=== PATIENT | female | born 1955 | race Caucasian/White ===

== ENCOUNTER 2024-05-08 04:11 | Emergency (ER) | payer MEDICARE, OTHER, SELFPAY ==
[2024-05-08 04:15] VITALS: BP 119/76
[2024-05-08 04:23] VITALS: BMI 33.1
--- NOTE | 2024-05-08 05:18 | ED.GENMED ---
History of Present Illness
General
Chief Complaint: Head Injury
Source: patient and family
Exam Limitations: none
Time Seen by Provider: 05/08/24 04:58
Nursing documentation reviewed up to this point in time: agreed with
History of Present Illness
History of Present Illness:
Pleasant 68-year-old female that presents with a fall. She is on Xarelto for atrial fibrillation. Tonight she stumbled and struck her head. She is not sure if she had loss of consciousness but she does not remember the fall. She does report left
knee pain but that has been subacute. She states that she injured that knee a while ago. She just wants an x-ray to have it checked out. Denies blurry vision. Denies nausea or vomiting. Reports no dizziness vertigo. is a retired
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 I did allow this. He felt that the CAT scan was normal with the exception of her chronic ventriculomegaly.
Past History
Past History
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
ED Past Surgical History: Orthopedic (Right ankle fracture repair August 2020); Negative Cardiac
Social History
Tobacco: Non-smoker
Personal:
Living: with family
Family History
Family History: Other (Noncontributory)
Review of Systems
Review of Systems
Allergies reviewed?: Yes
Other source history: family
All Other Systems: ROS reviewed and negative except as documented in HPI and ROS
Constitutional: Reports no symptoms
EENT: Reports no symptoms
Respiratory: Reports no symptoms
Cardiac: Reports no symptoms
ABD/GI: Denies nausea or vomiting
: Reports no symptoms
Musculoskeletal: Reports no symptoms
Skin: Reports no symptoms
Neurological: Reports headache; Denies dizzy, weakness or numbness
Endocrine: Reports no symptoms
Hematologic/Lymphatic: Reports no symptoms
Psychiatric: Reports anxiety
Phy Exam
General Physical Exam
General Presentation: well appearing and no apparent distress
General Skin: warm and dry
General Habitus: normal
General Mental: alert
General Hydration: appears well hydrated
ENT Exam
ENT Exam: EOMI, pharynx normal, neck supple and normocephalic
Eye Exam
Eye Exam: PERRL, cornea clear and conjunctiva normal
Cardiovascular Exam
Cardiovascular Exam: regular rate/rhythm, no edema, no murmur and normal peripheral pulses
Pulmonary Exam
Pulmonary Exam: lungs clear, no respiratory distress, no rales, no crackles, no rhonchi, no stridor, no wheezing and no cough
Gastrointestinal Exam
Gastrointestinal Exam: normal bowel sounds, non tender, soft, no organomegaly, no pulsatile mass and non distended
Neurological Exam
Neurological Exam: alert, oriented x3, no motor deficits and speech normal
Musculoskeletal Exam
Musculoskeletal Exam: full ROM and no edema
Skin Exam
Skin Exam: normal color, warm/dry, no rash and no petechia
Psychiatric Exam
Psychiatric Exam: normal mood/affect
Course
Orders/Labs/Results
Orders:
Orders
05/08/24 04:[address] [CT Head W/o Iv Contrast] Urgent
Comment: with head strike
Reason For Exam: fall on xarelto
05/08/24 04:24
Knee, Left 4 or More Views [CR Knee - Left 4 Or More View*] Urgent
Comment:
Reason For Exam: fall
Vital Signs
Initial and Last Documented VS:
Initial Vital Signs
Temp Pulse Resp BP Pulse Ox
98.5 F 81 20 119/76 98
05/08/24 04:15 05/08/24 04:15 05/08/24 04:15 05/08/24 04:15 05/08/24 04:15
Last Documented Vital Signs
Temp Pulse Resp BP Pulse Ox
98.5 F 81 20 119/76 98
05/08/24 04:15 05/08/24 04:15 05/08/24 04:15 05/08/24 04:15 05/08/24 04:15
*Radiology
Radiology exam reviewed: radiology read reviewed
*Pulse Oximetry
Patient hypoxic: no
*Critical Care Note
Total Time (30-74mins, 75-104mins- exclusive of procedures): Not Applicable
Update Note
Update Note:
CT head without IV contrast
IMPRESSION:
No hemorrhage or other evidence of trauma.
Ventriculomegaly out of proportion to the degree of parenchymal atrophy suggesting underlying normal pressure hydrocephalus. No prior imaging for comparison.
Sequelae of chronic microvascular disease. Global parenchymal volume loss.
05/08/2024 0539 AM: Discussed this with who states that the ventriculomegaly is chronic
ED Attending Note
-
Portions of this chart may have been created with voice recognition software.� Occasional wrong word or��sound alike� substitutions may have occurred due to the inherent limitations of voice recognition software.
Discharge Plan
Departure
Patient Disposition: Home (Routine Discharge)
Date of Disposition: 05/08/24
Time of Disposition: 05:41
Patient with high blood pressure during this ER visit?: No
Condition: Good
Discharge Problem:
Head injury, Subacute knee pain
Instructions: Head Injury in Adults (DC), Minor Head Injury (DC), Knee Pain ED
Referrals:
[facility] [Outside]
[facility] [Outside]
Activity Restrictions/Additional Instructions:
It was a pleasure meeting you and taking part in your care. We hope for your continued healing and wellness.
Please read discharge instructions in their entirety. However, they are for general education and may not describe your exact diagnosis at discharge. Information on your ER visit and medical conditions were discussed with you along with appropriate
follow up information...
If indicated, please take your medications as instructed and indicated on discharge paperwork.
Please schedule a follow up appointment as directed. Call to schedule an appointment
Please return to the emergency department with ANY change in, persisting, or worsening of symptoms. If any of your symptoms do not improve, or persist, or become more severe within 6-12 hours, please return to the emergency department for further
care.
Please return to the emergency department if you develop a headache, neck pain/stiffness, fever greater than 100.4F, chest pain, shortness of breath, persistent nausea, vomiting, slurred speech, difficulty walking, numbness/tingling, weakness, signs
of infection or any other symptoms that are worrisome to you.
If you have any questions or concerns please do not hesitate to call the Hospital at
Interventions
Interventions:
*Risk Screen - Suicide Last Done: 05/08/24 04:23
*General Assessment Last Done: 05/08/24 04:23
*Neglect/Abuse Screening Last Done: 05/08/24 04:23
*ED COVID-19 Vaccine History Last Done: 05/08/24 04:23
ED- Neurological Assessment Last Done: 05/08/24 04:23
ED-Skin Assessment Last Done: 05/08/24 04:23
Discharge Date and Time
Print Language: BERMUDIAN
== END 2024-05-08 06:02 | disposition home or self-care (01) ==
LOC: EMR 04:11
PROVIDERS: EMERGENCY PHYSICIAN Student in an Organized Health Care Education/Training Program; FAMILY PHYSICIAN Family Medicine
DX: S09.90XA Unspecified injury of head, initial encounter (principal); M25.562 Pain in left knee; R51.9 Headache, unspecified; W19.XXXA Unspecified fall, initial encounter; I48.91 Unspecified atrial fibrillation; Z63.4 Disappearance and death of family member; G93.89 Other specified disorders of brain; G89.29 Other chronic pain; R68.84 Jaw pain; I10 Essential (primary) hypertension; G62.9 Polyneuropathy, unspecified; Z79.01 Long term (current) use of anticoagulants
CPT/HCPCS: 99284; 70450; 73564

== ENCOUNTER → 2024-06-17 17:54 | Outpatient (REF) | payer MEDICARE, OTHER, SELFPAY | LOC: RAD 17:54 | PROVIDERS: ATTENDING PHYSICIAN Nurse Practitioner Adult Health | DX: M25.571 Pain in right ankle and joints of right foot (principal); Z98.1 Arthrodesis status | CPT/HCPCS: 73610 ==

== ENCOUNTER → 2024-08-24 14:37 | Outpatient (REF) | payer MEDICARE, OTHER, SELFPAY | LOC: HWRAD 14:37 | PROVIDERS: ATTENDING PHYSICIAN Obstetrics & Gynecology; FAMILY PHYSICIAN Family Medicine | DX: Z13.820 Encounter for screening for osteoporosis (principal); Z78.0 Asymptomatic menopausal state | CPT/HCPCS: 77080 ==

== ENCOUNTER 2025-01-24 05:31 | Emergency (ER) | payer MEDICARE, OTHER, SELFPAY ==
[2025-01-24] VITALS (20 sets, daily range): BP systolic 81–156; BP diastolic 46–104; BMI 30.5
[2025-01-24 05:55] LABS: Glucose - Point of Care 110 mg/dl (70-99)
[2025-01-24 06:33] LABS: % Basophils 0.4 % (0-2); % Eosinophils 1.5 % (0-6); % Immature Granulocytes 0.2 % (0-0.5); % Lymphocytes 29.1 % (20.5-51.1); % Monocytes 8.5 % (1.7-9.3); % Neutrophils 60.3 % (42.2-75.2); Absolute Eosinophils 0.1 10^3/uL (0-0.7); Absolute Lymphocytes 1.3 10^3/uL (1.2-3.4); Absolute Monocytes 0.4 10^3/uL (0.1-0.6); Absolute Neutrophils 2.8 10^3/uL (1.4-6.5); Hematocrit 40.8 % (37.0-47.0); Hemoglobin 13.6 g/dL (12.0-16.0); Mean Corp Hgb Conc. 33.3 g/dL (33.0-37.0); Mean Corpuscular Hgb 30.5 pg (27.0-31.0); Mean Corpuscular Volume 91.5 fL (81.0-99.0); Mean Platelet Volume 12.7 fL (7.4-10.4); Nucleated Red Blood Cells % 0 %; Platelet Count 106 10^3/uL (130-400); Red Blood Cell Count 4.46 10^6/uL (4.20-5.40); Red Cell Dist. Width 13.9 % (11.5-14.5); White Blood Cell Count 4.6 10^3/uL (4.8-10.8)
[2025-01-24] MEDS: NSS 1000 IV ×2 (06:33→10:09)
[2025-01-24 06:38] LABS: INR 1.73; PT 20.5 Sec (11.4-14.6)
--- NOTE | 2025-01-24 06:38 | ED.GENMED ---
Addendum entered and electronically signed by Eusebio Hector DO 01/24/25 13:02:
Update patient awake alert and oriented sitting upright, states she would like to go home she just called her to come get her is in [place] and appointment
Original Note:
History of Present Illness
General
Chief Complaint: Change in Mental Status
Source: patient, records, spouse and previous hospital records
Exam Limitations: altered mental status
Time Seen by Provider: 01/24/25 06:23
History of Present Illness
History of Present Illness:
69-year-old female with PAF on Xarelto chronic pain syndrome on methadone medical marijuana Colace drinks alcohol companied by her spouse she was grabbing at her head today possibly fell, here she is moaning in pain arousable pupils are 3 mm OU,
blood pressure in the high 90s, no fevers no vomiting no chance of overdose gives her her meds,
Past History
Past History
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
ED Past Surgical History: Orthopedic (Right ankle fracture repair August 2020); Negative Cardiac
Social History
Tobacco: Non-smoker
Alcohol: Occasional
Drug: Marijuana
Personal:
Living: with family
Employment: Retired
Family History
Family History: Other (Noncontributory)
Review of Systems
Review of Systems
Unable to obtain full review of systems at this time due to: due to acuity
Other source history: family
All Other Systems: Not applicable
Phy Exam
Physical Exam
Physical Exam:
Physical Exam
General: 69-year-old female moaning eyes closed opens to voice
Neck: No tongue
Heart: s1/s2 regular rate and rhythm, no murmur. equal radial pulses.
Lungs: no acute respiratory distress. clear bilaterally
Abdomen: Nontender
Neuro: alert and oriented. no focal neurological deficits
Skin: no rash
Psychiatric: well kept. interactive and cooperative
Extremities: no edema.
Course
Orders/Labs/Results
Orders:
Orders
01/24/25 05:57
ECG [Electrocardiogram (*1)] Urgent
Reason for Study: Other
Other Reason for Exam: change of mental status
Cardiology Consult: Unknown
EKG- Treatment ONCE
01/24/25 06:02
Acetaminophen Urgent
Comment: ADD ON
Alcohol Urgent
Complete Blood Count/With Diff Urgent
Comprehensive Metabolic Panel Urgent
Fentanyl, Urine Urgent
Lipase Urgent
Comment: ADD ON
PTT Urgent
Prothrombin Time Urgent
Salicylate Urgent
Comment: ADD ON
Urinalysis Reflex To Culture Urgent
Date Specimen was Collected: 01/24/25
Time Specimen was Collected: 05:56
Urine Drug Abuse Screen Urgent
Date Specimen was Collected: 01/24/25
Time Specimen was Collected: 05:56
Urine Microscopic Reflex Cult Urgent
01/24/25 06:25
CT Cervical Spine W/o Iv Contr Urgent
Comment:
Reason For Exam: xarelto
CT Head W/o Iv Contrast Urgent
Comment:
Reason For Exam: fall xarelto
Cardiac Monitoring- Treatment ONCE
0.9% Sodium Chloride 1000 ml [Nss] 1,000 ml IV BOLUS
CR Chest Portable - 1 View Urgent
Comment:
Reason For Exam: alterned ms
Reason Study Needs to be Portable: Unable to Transport
01/24/25 06:43
Add On- LAB Urgent
Tests Added?: Salicylate, acetaminophen
01/24/25 09:40
0.9% Sodium Chloride 1000 ml [Nss] 1,000 ml IV BOLUS
Pantoprazole [Protonix IV] 40 mg IV NOW STA
01/24/25 09:41
Add On- LAB Urgent
Tests Added?: Lipase
01/24/25 10:07
Troponin I Urgent
01/24/25 13:00
Methadone [Dolophine] 10 mg PO QID
01/24/25 16:00
Gabapentin [Neurontin] 600 mg PO TID
Abnormal Lab Results
01/24/25 01/24/25
05:54 06:02
WBC 4.6 L 10^3/uL
(4.8-10.8)
Plt Count 106 L 10^3/uL
(130-400)
MPV 12.7 H fL
(7.4-10.4)
PT 20.5 H Sec
(11.4-14.6)
APTT 41.1 H Sec
(23.4-35.0)
Sodium 134 L mmol/L
(135-145)
Chloride 96 L mmol/L
(98-107)
Carbon Dioxide 31 H mmol/L
(22-30)
BUN 25 H mg/dl
(7-17)
Glucose 139 H mg/dl
(70-99)
AST 37 H U/L
(14-36)
Urine Albumin (Reflex) 1+ A
(Neg - Trace)
Salicylates < 1.0 L mg/dl
(2.0-20.0)
Urine Methadone Screen Positive H
(Negative)
Acetaminophen < 10 L ug/ml
(10-30)
Ur Tricyclics Screen Positive H
(Negative)
U Marijuana (THC) Screen Positive H
(Negative)
POC Glucose 110 H mg/dl
(70-99)
01/24/25 06:02
01/24/25 06:02
Vital Signs
Initial and Last Documented VS:
Initial Vital Signs
Pulse Resp Pulse Ox
60 24 96
01/24/25 05:34 01/24/25 05:34 01/24/25 05:34
Last Documented Vital Signs
Temp Pulse Resp BP Pulse Ox
97.7 F 46 13 105/58 100
01/24/25 06:30 01/24/25 12:34 01/24/25 12:34 01/24/25 12:34 01/24/25 12:34
MDM/Problems Addressed
Differential Diagnosis Includes:
Intoxication, head injury, intracerebral hemorrhage, medication withdrawal,
MDM/Problems Addressed:
Agitation possibly fall
Chronic conditions affecting care:
Chronic pain
Acute Exacerbation and/or Progression of Chronic Illness:
Chronic pain
*Radiology
Radiology exam reviewed: preliminary read by ED provider
*Pulse Oximetry
Patient hypoxic: no
*EKG
Interpreted by ED Provider?: Yes
Interpretation: normal
Comparison EKG: no comparison EKG present
Heart Rate: 78
Rate: normal
Rhythm: sinus
Ischemia: no ischemia
*Production Expediter Interpretation
Rate: normal
Interpretation: normal
Heart Rate: 78
Rhythm: sinus
*Critical Care Note
Total Time (30-74mins, 75-104mins- exclusive of procedures): Not Applicable
Update Note
Update Note:
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
add troponin lipase Protonix
12:30 PM patient lethargic, though easily arousable, discussed with spouse that he has to go to an appointment will be admitted does not look like she can go home this state
ED Attending Note
-
Portions of this chart may have been created with voice recognition software.� Occasional wrong word or��sound alike� substitutions may have occurred due to the inherent limitations of voice recognition software.
Discharge Plan
Departure
Patient Disposition: Admit
Date of Disposition: 01/24/25
Time of Disposition: 12:37
Admit to: Telemetry
Presentation/result/management discussed w/ accepting MD/DO: Hospitalist
Patient with high blood pressure during this ER visit?: No
Condition: Fair
Discharge Problem:
Altered sensorium
Instructions: Altered Mental Status (DC)
Prescriptions:
No Action
gabapentin 600 mg Tablet
600 mg PO TID
Colace 50 mg Capsule
50 mg PO TID
oxycodone-acetaminophen [Percocet] 5-325 mg Tablet
1 tab PO HS
tamsulosin [Flomax] 0.4 mg Capsule
0.4 mg PO BID
nortriptyline 50 mg Capsule
50 mg PO HS
nebivolol [Bystolic] 10 mg Tablet
10 mg PO HS
rivaroxaban [Xarelto] 2.5 mg Tablet
5 mg PO BID
Referrals:
Yasmine Gama MD [Family Provider] -
Interventions
Interventions:
*Risk Screen - Suicide Last Done: 01/24/25 06:08
*General Assessment Last Done: 01/24/25 06:08
*Neglect/Abuse Screening Last Done: 01/24/25 06:08
*ED- Fall Risk Assessment Last Done: 01/24/25 06:41
*ED COVID-19 Vaccine History Last Done: 01/24/25 06:07
ED- Cardiac Assessment Last Done: 01/24/25 06:08
ED- Neurological Assessment Last Done: 01/24/25 06:08
ED-Psychological Assessment Last Done: 01/24/25 06:08
ED- Pulmonary Assessment Last Done: 01/24/25 06:08
ED Swallowing Screen Last Done: 01/24/25 06:41
Discharge Date and Time
Print Language: SLOVENIAN
[2025-01-24 06:39] LABS: APTT 41.1 Sec (23.4-35.0)
[2025-01-24 06:50] LABS: ALT (SGPT) 28 U/L (0-35); AST (SGOT) 37 U/L (14-36); Albumin 4.4 g/dl (3.5-5.0); Alkaline Phosphatase 101 U/L (38-126); Blood Urea Nitrogen 25 mg/dl (7-17); Calcium 10.2 mg/dl (8.4-10.2); Carbon Dioxide 31 mmol/L (22-30); Chloride 96 mmol/L (98-107); Estimated Creatinine Clearance 60 ml/min; Glucose 139 mg/dl (70-99); Potassium 4.2 mmol/L (3.5-5.1); Sodium 134 mmol/L (135-145); Total Bilirubin 0.3 mg/dl (0.2-1.3); Total Protein 7.3 g/dl (6.3-8.2); eGFR > 60.00
[2025-01-24 06:51] LABS: Alcohol None Detected
[2025-01-24 07:02] LABS: Amphetamines Negative (Negative); Barbiturates Negative (Negative); Benzodiazepines Negative (Negative); Buprenorphine Negative (Negative); Cocaine Negative (Negative); Marijuana Positive (Negative); Methadone Positive (Negative); Methamphetamines Negative (Negative); Opiates Negative (Negative); Phencyclidine Negative (Negative); Tricyclic Antidepressants Positive (Negative)
[2025-01-24 07:25] LABS: Acetaminophen < 10 ug/ml (10-30); Salicylate < 1.0 mg/dl (2.0-20.0)
[2025-01-24 07:34] LABS: Urine Albumin 1+ (Neg - Trace); Urine Bilirubin Negative (Negative); Urine Character Clear (Clear); Urine Color Yellow; Urine Glucose Negative (Negative); Urine Ketone Negative (Negative); Urine Leukocyte Negative (Negative); Urine Nitrite Negative (Negative); Urine Occult Blood Negative (Negative); Urine Urobilinogen Negative (Neg - 1+)
[2025-01-24 07:39] LABS: Fentanyl, Urine Negative (Negative)
[2025-01-24 08:27] LABS: Urine Hyaline Cast 0-2 /LPF (0-2); Urine Squamous Cell 0-2 /LPF (Few)
[2025-01-24 08:28] LABS: Urine Red Blood Cell 0-2 /HPF (0-2); Urine White Cell 0-2 /HPF (0-5)
[2025-01-24] MEDS: PROTONIX IV 40 MG IV (10:09)
[2025-01-24 10:22] LABS: Lipase 49 U/L (23-300)
[2025-01-24 10:35] LABS: Troponin I < 0.012 ng/ml
--- NOTE | 2025-01-24 12:56 | EDRN ---
hospitalist currently at the pts bedside, the pt is stating that she doesn't want to stay in the hospital and has called her to pick her up
--- NOTE | 2025-01-24 13:02 | ED.GENMED ---
History of Present Illness
General
Chief Complaint: Change in Mental Status
Time Seen by Provider: 01/24/25 06:23
Past History
Past History
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
ED Past Surgical History: Orthopedic (Right ankle fracture repair August 2020); Negative Cardiac
Social History
Tobacco: Non-smoker
Alcohol: Occasional
Drug: Marijuana
Personal:
Living: with family
Employment: Retired
Family History
Family History: Other (Noncontributory)
Course
Orders/Labs/Results
Orders:
Orders
01/24/25 05:57
ECG [Electrocardiogram (*1)] Urgent
Reason for Study: Other
Other Reason for Exam: change of mental status
Cardiology Consult: Unknown
EKG- Treatment ONCE
01/24/25 06:02
Acetaminophen Urgent
Comment: ADD ON
Alcohol Urgent
Complete Blood Count/With Diff Urgent
Comprehensive Metabolic Panel Urgent
Fentanyl, Urine Urgent
Lipase Urgent
Comment: ADD ON
PTT Urgent
Prothrombin Time Urgent
Salicylate Urgent
Comment: ADD ON
Urinalysis Reflex To Culture Urgent
Date Specimen was Collected: 01/24/25
Time Specimen was Collected: 05:56
Urine Drug Abuse Screen Urgent
Date Specimen was Collected: 01/24/25
Time Specimen was Collected: 05:56
Urine Microscopic Reflex Cult Urgent
01/24/25 06:[address]
CT Cervical Spine W/o Iv Contr Urgent
Comment:
Reason For Exam: xarelto
CT Head W/o Iv Contrast Urgent
Comment:
Reason For Exam: fall xarelto
Cardiac Monitoring- Treatment ONCE
0.9% Sodium Chloride 1000 ml [Nss] 1,000 ml IV BOLUS
CR Chest Portable - 1 View Urgent
Comment:
Reason For Exam: alterned ms
Reason Study Needs to be Portable: Unable to Transport
01/24/25 06:43
Add On- LAB Urgent
Tests Added?: Salicylate, acetaminophen
01/24/25 09:40
0.9% Sodium Chloride 1000 ml [Nss] 1,000 ml IV BOLUS
Pantoprazole [Protonix IV] 40 mg IV NOW STA
01/24/25 09:41
Add On- LAB Urgent
Tests Added?: Lipase
01/24/25 10:07
Troponin I Urgent
01/24/25 13:00
Methadone [Dolophine] 10 mg PO QID
01/24/25 16:00
Gabapentin [Neurontin] 600 mg PO TID
Abnormal Lab Results
01/24/25 01/24/25
05:54 06:02
WBC 4.6 L 10^3/uL
(4.8-10.8)
Plt Count 106 L 10^3/uL
(130-400)
MPV 12.7 H fL
(7.4-10.4)
PT 20.5 H Sec
(11.4-14.6)
APTT 41.1 H Sec
(23.4-35.0)
Sodium 134 L mmol/L
(135-145)
Chloride 96 L mmol/L
(98-107)
Carbon Dioxide 31 H mmol/L
(22-30)
BUN 25 H mg/dl
(7-17)
Glucose 139 H mg/dl
(70-99)
AST 37 H U/L
(14-36)
Urine Albumin (Reflex) 1+ A
(Neg - Trace)
Salicylates < 1.0 L mg/dl
(2.0-20.0)
Urine Methadone Screen Positive H
(Negative)
Acetaminophen < 10 L ug/ml
(10-30)
Ur Tricyclics Screen Positive H
(Negative)
U Marijuana (THC) Screen Positive H
(Negative)
POC Glucose 110 H mg/dl
(70-99)
01/24/25 06:02
01/24/25 06:02
Vital Signs
Initial and Last Documented VS:
Initial Vital Signs
Pulse Resp Pulse Ox
60 24 96
01/24/25 05:34 01/24/25 05:34 01/24/25 05:34
Last Documented Vital Signs
Temp Pulse Resp BP Pulse Ox
97.7 F 46 13 105/58 100
01/24/25 06:30 01/24/25 12:34 01/24/25 12:34 01/24/25 12:34 01/24/25 12:34
ED Attending Note
-
Portions of this chart may have been created with voice recognition software.� Occasional wrong word or��sound alike� substitutions may have occurred due to the inherent limitations of voice recognition software.
Discharge Plan
Departure
Patient Disposition: Admit
Date of Disposition: 01/24/25
Time of Disposition: 12:37
Admit to: Telemetry
Presentation/result/management discussed w/ accepting MD/DO: Hospitalist
Patient with high blood pressure during this ER visit?: No
Condition: Fair
Discharge Problem:
Altered sensorium
Instructions: Altered Mental Status (DC)
Prescriptions:
No Action
gabapentin 600 mg Tablet
600 mg PO TID
Colace 50 mg Capsule
50 mg PO TID
oxycodone-acetaminophen [Percocet] 5-325 mg Tablet
1 tab PO HS
tamsulosin [Flomax] 0.4 mg Capsule
0.4 mg PO BID
nortriptyline 50 mg Capsule
50 mg PO HS
nebivolol [Bystolic] 10 mg Tablet
10 mg PO HS
rivaroxaban [Xarelto] 2.5 mg Tablet
5 mg PO BID
Referrals:
Yasmine Gama MD [Family Provider] -
Interventions
Interventions:
*Risk Screen - Suicide Last Done: 01/24/25 06:08
*General Assessment Last Done: 01/24/25 06:08
*Neglect/Abuse Screening Last Done: 01/24/25 06:08
*ED- Fall Risk Assessment Last Done: 01/24/25 06:41
*ED COVID-19 Vaccine History Last Done: 01/24/25 06:07
ED- Cardiac Assessment Last Done: 01/24/25 06:08
ED- Neurological Assessment Last Done: 01/24/25 06:08
ED-Psychological Assessment Last Done: 01/24/25 06:08
ED- Pulmonary Assessment Last Done: 01/24/25 06:08
ED Swallowing Screen Last Done: 01/24/25 06:41
Discharge Date and Time
Print Language: ARABIC
[2025-01-24] MEDS: DOLOPHINE 10 MG PO (13:11)
--- NOTE | 2025-01-24 13:15 | EDRN ---
Dr. Hector and the hospitalist were at the pts bedside and spoke to the pt and the pt stated that she is refusing to be admitted and wants to go home when her gets back, the pt started screaming 'Help help hello someone help me', this RN
entered the pts room and the pt stated, 'I need to go to the bathroom right now', the pt removed the cardiac cath technologist, BP cuff, Sp02 monitor, and 02 tubing and stated, 'I don't need any of that shit get me to the bathroom immediately', the pt was
able to ambulate independently with walker with no issues, the pt had no c/o lightheadedness, no c/o dizziness, the pt ambulated to the bathroom and back to the stretcher with no issues and got herself comfortable in the stretcher, the pt was
agreeable to this RN placing the pt back on the cardiac cath technologist, BP cuff and Sp02 monitor, the pts Sp02 is 97% on RA, this RN administered the pts PO methadone dose that was ordered by Dr. Hector and the pt stated, 'Put it in my mouth for me don't
just hand it to me', this RN did as the pt asked and placed the methadone in the pts mouth and the pt was able to take the tablet with water with no issues, the pt then stated, 'You know you are so rude, you don't even help me take my meds and then
you don't even offer me another blanket', this RN offered the pts a warm blanket, the pt is resting in stretcher in the lowest position, side rails up x2, call lozano within reach, HOB elevated, no s/s of distress, awaiting for the pts to come
back to ED from a doctors appointment to pick the pt up, Dr. Hector has discharged the pt, will continue to monitor the pt closely
--- NOTE | 2025-01-24 13:26 | EDRN ---
the pt pressed the call lozano and this RN entered the pts room, the pt stated to this RN, 'I want another blanket and i want to remote to control the head of the bed so i can put it down and up as i please', this RN provided the pt with another
blanket and this RN explained to the pt that this RN would have to put the head of the bed up or down for her due to it being manual, this RN repositioned the head of the bed to the pts request and the pt stated, 'That is ridiculous i should be able
to adjust it the way i want buy fine that's all', will continue to monitor the pt closely
--- NOTE | 2025-01-24 15:14 | EDRN ---
currently still waiting for the pts to pick her up to take her home, the pt is resting in stretcher in the lowest position, side rails up x2, call lozano within reach, HOB elevated, no s/s of distress, VS WNL, the pt denies needing anything at
this time, will continue to monitor the pt closely
== END 2025-01-24 17:00 | disposition home or self-care (01) ==
LOC: EMR 05:31
PROVIDERS: Emergency Medicine; EMERGENCY PHYSICIAN Emergency Medicine; FAMILY PHYSICIAN Family Medicine
DX: R41.82 Altered mental status, unspecified (principal); Z79.01 Long term (current) use of anticoagulants
CPT/HCPCS: 99285; 96374; 96361 ×2; 70450; 71045; 72125; 80053; 80143; 80179; 80306; 80307; 81003; 81015; 82077; 82962; 83690; 84484; 85025; 85610; 85730; 93005

== ENCOUNTER 2025-10-27 14:02 | Emergency (ER) | payer OTHER, SELFPAY ==
[2025-10-27 14:06] VITALS: BP 125/95
[2025-10-27 14:29] LABS: Hematocrit 41.0 % (37.0-47.0); Hemoglobin 13.9 g/dL (12.0-16.0); Mean Corp Hgb Conc. 33.9 g/dL (33.0-37.0); Mean Corpuscular Volume 86.5 fL (81.0-99.0); Nucleated Red Blood Cells % 0 %; Red Cell Dist. Width 13.2 % (11.5-14.5)
[2025-10-27 14:36] LABS: ALT (SGPT) 14 U/L (0-35); AST (SGOT) 22 U/L (14-36); Albumin 4.8 g/dl (3.5-5.0); Alkaline Phosphatase 65 U/L (38-126); Blood Urea Nitrogen 26 mg/dl (7-17); Calcium 10.2 mg/dl (8.4-10.2); Carbon Dioxide 27 mmol/L (22-30); Chloride 102 mmol/L (98-107); Glucose 91 mg/dl (70-99); Lipase 109 U/L (23-300); Potassium 4.5 mmol/L (3.5-5.1); Sodium 137 mmol/L (135-145); Total Protein 7.6 g/dl (6.3-8.2); eGFR > 60.00
[2025-10-27 14:52] LABS: Platelet Count 123 10^3/uL (130-400)
[2025-10-27 16:21] VITALS: BMI 30.1
[2025-10-27 16:35] VITALS: BP 137/79
[2025-10-27 17:50] VITALS: BP 148/72
[2025-10-27 18:00] VITALS: BP 131/68
[2025-10-27 19:46] VITALS: BP 158/98
[2025-10-27 20:00] VITALS: BP 140/73
--- NOTE | 2025-10-27 20:26 | ED.GENMED ---
History of Present Illness
General
Chief Complaint: Abdominal Pain
Source: patient
Exam Limitations: none
Time Seen by Provider: 10/27/25 15:55
Nursing documentation reviewed up to this point in time: agreed with
History of Present Illness
History of Present Illness:
Patient's emergency department with complaint of right upper quadrant abdominal pain. Symptoms started yesterday. She describes pain as sharp and intermittent. She reports pain comes in waves. She denies any fever or chills. She denies any
nausea vomiting or diarrhea. Brought to emergency department by her spouse for evaluation.
Past History
Past History
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
ED Past Surgical History: Orthopedic (Right ankle fracture repair August 2020); Negative Cardiac
Social History
Tobacco: Non-smoker
Alcohol: Occasional
Drug: Marijuana
Personal:
Living: with family
Employment: Retired
Family History
Family History: Other (Noncontributory)
Phy Exam
General Physical Exam
General Presentation: well appearing and no apparent distress
General age: appears stated age
General Skin: warm and dry
General Habitus: normal
General Mental: alert
Cardiovascular Exam
Cardiovascular Exam: regular rate/rhythm and no edema
Pulmonary Exam
Pulmonary Exam: lungs clear and no respiratory distress
Gastrointestinal Exam
Gastrointestinal Exam: normal bowel sounds, non tender, soft, no organomegaly, no pulsatile mass and non distended
Musculoskeletal Exam
Musculoskeletal Exam: full ROM and neuro vasc intact
Skin Exam
Skin Exam: normal color, warm/dry and no rash
Psychiatric Exam
Psychiatric Exam: normal mood/affect
Course
Orders/Labs/Results
Orders:
Orders
10/27/25 14:14
Complete Blood Count/With Diff Urgent
Comprehensive Metabolic Panel Urgent
Lipase Urgent
10/27/25 16:30
Ribs, Right 3 View W/PA Chest [CR Ribs-right 3 Vw W/pa Chest*] Urgent
Comment:
Reason For Exam: right lateral chest pain
US Abdomen Complete/Upper Urgent
Comment:
Reason For Exam: upper abd. pain
Abnormal Lab Results
10/27/25
14:14
WBC 4.1 L 10^3/uL
(4.8-10.8)
Plt Count 123 L 10^3/uL
(130-400)
BUN 26 H mg/dl
(7-17)
10/27/25 14:14
10/27/25 14:14
Vital Signs
Initial and Last Documented VS:
Initial Vital Signs
Temp Pulse Resp BP Pulse Ox
98.2 F 80 16 125/95 98
10/27/25 14:06 10/27/25 14:06 10/27/25 14:06 10/27/25 14:06 10/27/25 14:06
Last Documented Vital Signs
Temp Pulse Resp BP Pulse Ox
98.2 F 76 13 140/73 93
10/27/25 14:06 10/27/25 20:45 10/27/25 18:30 10/27/25 20:00 10/27/25 20:45
*Radiology
Radiology exam reviewed: radiology read reviewed
*Pulse Oximetry
SaO2: 98
Oxygen Mode of Delivery: Room air
Patient hypoxic: no
*Critical Care Note
Total Time (30-74mins, 75-104mins- exclusive of procedures): Not Applicable
Update Note
Update Note:
Patient to the emergency department for evaluation of right upper quadrant abdominal pain. Symptoms started yesterday. Pain is intermittent. There is no aggravating or alleviating factors. No associated nausea vomiting or diarrhea. She denies
any fever or chills. On exam today vital signs are stable, she remains afebrile. WBC 4.1. LFTs all within normal limits. No right upper quadrant abdominal pain was elicited on examination. Abdomen is soft, bowel sounds x 4 quads. Ultrasound
completed. Confirms small gallstones and sludge however no wall thickening or biliary dilatation. Discussed findings with patient and spouse. Will discharge home tonight with close follow-up with PCP. She was given instructions on signs and
symptoms to return to the emergency department and she is agreeable to this plan.
ED Attending Note
-
Portions of this chart may have been created with voice recognition software.� Occasional wrong word or��sound alike� substitutions may have occurred due to the inherent limitations of voice recognition software.
Discharge Plan
Departure
Patient Disposition: Home (Routine Discharge)
Date of Disposition: 10/27/25
Time of Disposition: 20:24
Patient with high blood pressure during this ER visit?: No
Condition: Good
Covid-19: Not Applicable
Discharge Problem:
Abdominal pain
Instructions: Abdominal Pain
Prescriptions:
No Action
gabapentin 600 mg Tablet
600 mg PO TID
Colace 50 mg Capsule
50 mg PO TID
oxycodone-acetaminophen [Percocet] 5-325 mg Tablet
1 tab PO HS
tamsulosin [Flomax] 0.4 mg Capsule
0.4 mg PO BID
nortriptyline 50 mg Capsule
50 mg PO HS
nebivolol [Bystolic] 10 mg Tablet
10 mg PO HS
rivaroxaban [Xarelto] 2.5 mg Tablet
5 mg PO BID
Referrals:
Yasmine Gama MD [Family Provider, Family Practice] - Follow up in 2-3 days
Activity Restrictions/Additional Instructions:
Follow-up with your family doctor. Return to the emergency department immediately for any changes in/worsening of your symptoms.
Interventions
Interventions:
*Risk Screen - Suicide Last Done: 10/27/25 14:06
*General Assessment Last Done: 10/27/25 14:10
*Neglect/Abuse Screening Last Done: 10/27/25 14:06
*ED COVID-19 Vaccine History Last Done: 10/27/25 16:22
*ED Influenza Vaccine History Last Done: 10/27/25 16:22
[facility] Fall Risk Assessment Tool Last Done: 10/27/25 16:22
*Nursing Disposition Last Done: 10/27/25 21:10
SI-Rrgsfc-Vrhlwcxzda Assessment Last Done: 10/27/25 16:22
Discharge Date and Time
Discharge Date/Time: 10/27/25 21:10
Print Language: [id number]
== END 2025-10-27 21:10 | disposition home or self-care (01) ==
LOC: EMR 14:02
PROVIDERS: EMERGENCY PHYSICIAN Emergency Medicine; FAMILY PHYSICIAN Family Medicine
DX: R10.11 Right upper quadrant pain (principal); K80.20 Calculus of gallbladder without cholecystitis without obstruction; I10 Essential (primary) hypertension; G54.8 Other nerve root and plexus disorders
CPT/HCPCS: 99284; 71101; 76700; 80053; 83690; 85025

== ENCOUNTER 2025-11-03 21:02 | Emergency (ER) | payer MEDICARE, OTHER, SELFPAY ==
[2025-11-03 21:22] VITALS: BP 122/81
[2025-11-03] MEDS: TYLENOL 650 MG PO (22:17)
--- NOTE | 2025-11-04 00:38 | ED.GENMED ---
History of Present Illness
General
Chief Complaint: Musculo-Skeletal Complaint
Source: patient and spouse
Exam Limitations: none
Time Seen by Provider: 11/03/25 22:05
Nursing documentation reviewed up to this point in time: agreed with
History of Present Illness
History of Present Illness:
70-year-old female with a past medical history as noted presents for evaluation of a right foot/toe injury. Patient reports that she had a minor fall and injured her right great toe today came to the ER for assessment. She denies any other
injuries or complaints.
Past History
Past History
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
ED Past Surgical History: Orthopedic (Right ankle fracture repair August 2020); Negative Cardiac
Social History
Tobacco: Non-smoker
Alcohol: Occasional
Drug: Marijuana
Personal:
Living: with family
Employment: Retired
Family History
Family History: Other (Noncontributory)
Review of Systems
Review of Systems
All Other Systems: ROS reviewed and negative except as documented in HPI and ROS
Musculoskeletal: Reports joint pain (Toe pain/foot pain); Denies neck pain or back pain
Neurological: Denies headache
Phy Exam
Physical Exam
Physical Exam:
General: Well appearing and non-toxic
HEENT: protecting airway, head is normocephalic and atraumatic
Neck: appears supple, no tenderness of the cervical spine and good range of motion without pain
Back: No signs of trauma the back or flank
CV: No evidence of cyanosis
Resp: No accessory muscle use
Abd: Non-distended
Extremities: No deformities; she does have some swelling and tenderness of the first toe on the right particular at the MTP joint and PIP joint; no tenderness of the midfoot, no tenderness of the ankle, no tenderness at calcaneus
Neuro: Alert
Psych: Normal affect
Skin: Intact, warm and well-perfused
Scores
Heart Failure Risk
Heart Failure Risk Score: Not Applicable
Heart Score for Chest Pain Patients
STEMI patient?: Not applicable
Withdrawal Assessment of Alcohol
Withdrawal Assessment Completed?: Not applicable
Course
Orders/Labs/Results
Orders:
Orders
11/03/25 21:28
Toes 2 Views, Right [CR Toe(s) Min 2 Vw Right] Urgent
Comment:
Reason For Exam: injury
Indicate Which Toe:: Great
11/03/25 22:10
CR Foot - Right Min 3 Views Urgent
Comment:
Reason For Exam: right foot injury
11/03/25 22:11
Acetaminophen [Tylenol] 650 mg PO NOW STA
Vital Signs
Initial and Last Documented VS:
Initial Vital Signs
Temp Pulse Resp BP Pulse Ox
36.8 C 74 20 122/81 99
11/03/25 21:22 11/03/25 21:22 11/03/25 21:22 11/03/25 21:22 11/03/25 21:22
Last Documented Vital Signs
Temp Pulse Resp BP Pulse Ox
36.8 C 74 20 122/81 99
11/03/25 21:22 11/03/25 21:22 11/03/25 21:22 11/03/25 21:22 11/04/25 00:44
MDM/Problems Addressed
Differential Diagnosis Includes:
Fracture, sprain
MDM/Problems Addressed:
70-year-old female presents with a right toe injury. Sent for an x-ray suspect subtle hairline fracture of the first metatarsal on my review. Placed in short leg Ortho boot. Stable for discharge with orthopedic referral.
*Radiology
Radiology exam reviewed: preliminary read by ED provider
*Pulse Oximetry
SaO2: 99
Oxygen Mode of Delivery: Room air
Patient hypoxic: no (99%)
*Critical Care Note
Total Time (30-74mins, 75-104mins- exclusive of procedures): Not Applicable
Data Reviewed
Source: patient and spouse
ED Attending Note
-
Portions of this chart may have been created with voice recognition software.� Occasional wrong word or��sound alike� substitutions may have occurred due to the inherent limitations of voice recognition software.
Discharge Plan
Departure
Patient Disposition: Home (Routine Discharge)
Date of Disposition: 11/04/25
Time of Disposition: 00:42
Patient with high blood pressure during this ER visit?: No
Discharge Problem:
Foot fracture
Instructions: Foot Fracture ED
Prescriptions:
No Action
gabapentin 600 mg Tablet
600 mg PO TID
Colace 50 mg Capsule
50 mg PO TID
oxycodone-acetaminophen [Percocet] 5-325 mg Tablet
1 tab PO HS
tamsulosin [Flomax] 0.4 mg Capsule
0.4 mg PO BID
nortriptyline 50 mg Capsule
50 mg PO HS
nebivolol [Bystolic] 10 mg Tablet
10 mg PO HS
rivaroxaban [Xarelto] 2.5 mg Tablet
5 mg PO BID
Referrals:
Yasmine Gama MD [Family Provider, Family Practice]
Carson Child DPM [Active, Podiatry] - Call in 1-3 days for appt
Activity Restrictions/Additional Instructions:
Thank you for visiting the Emergency Department at [facility].
1. Please schedule a follow up appointment as directed. Call first thing tomorrow morning to make an appointment.
2. If indicated, please take your medications as instructed and indicated on discharge paperwork.
3. If any of your symptoms do not improve, or persist, or become more severe within 6-12 hours, please return to the emergency department for further care.
4. Please return to the emergency department if you develop a headache, neck pain/stiffness, fever greater than 100.4F, chest pain, shortness of breath, persistent nausea, vomiting, slurred speech, difficulty walking, numbness/tingling, weakness,
signs of infection or any other symptoms that are worrisome to you.
Please call [phone] if you have any questions.
Interventions
Interventions:
*General Assessment Last Done: 11/03/25 21:22
*Neglect/Abuse Screening Last Done: 11/03/25 21:22
*ED COVID-19 Vaccine History Last Done: 11/03/25 21:22
*ED Influenza Vaccine History Last Done: 11/03/25 21:22
[facility] Fall Risk Assessment Tool Last Done: 11/03/25 22:20
*Risk Screen - Suicide (C-SSRS) Last Done: 11/03/25 22:21
*Nursing Disposition Last Done: 11/04/25 01:29
ED-Musculoskeletal Assessment Last Done: 11/03/25 22:20
Discharge Date and Time
Print Language: WOLOF
== END 2025-11-04 01:38 | disposition home or self-care (01) ==
LOC: EMR 21:02
PROVIDERS: EMERGENCY PHYSICIAN Emergency Medicine; FAMILY PHYSICIAN Family Medicine
DX: S92.909A Unspecified fracture of unspecified foot, initial encounter for closed fracture (principal); W19.XXXA Unspecified fall, initial encounter; I10 Essential (primary) hypertension
CPT/HCPCS: 99283; 73630